=== PATIENT | male | born 1985 | race African-American/Black ===

== ENCOUNTER 2017-04-15 17:33 | Emergency (ER) | payer MEDICARE, OTHER ==
[~2017-04-15] VITALS: Ht 190.5 cm; Wt 115.0 kg
[2017-04-15 17:42] VITALS: TEMP 37.3; O2SAT 96; Ht 190.5 cm; Wt 115.0 kg
[2017-04-15] MEDS ORDERED: MoRPHine SULFATE 4 MG/ML 1 ML CARP\\VIAL IV STA (18:23)
[2017-04-15] MEDS ORDERED: ONDANSETRON INJ 2 MG/ML 2 ML VIAL IV STA (18:23)
[2017-04-15 18:29] LABS: BASO % 0.4 %; BASO ABS # 0.03 K/uL (0-0.2); COMPLETE YES; EOS % 1.7 %; HEMATOCRIT 39.5 % (42-52); IG% 0.1 %; LYMPH % 34.4 %; LYMPH ABS # 2.57 K/uL (1.2-3.4); MEAN CORPUSCULAR HGB CONC 34.4 g/dl (32-36); MEAN PLATELET VOLUME 9.3 fL (7.4-10.4); MONO % 9.9 %; NEUT % 53.5 %; PLATELET COUNT 258 K/uL (130-400); RED BLOOD COUNT 4.54 M/uL (4.7-6.1); WHITE BLOOD COUNT 7.48 K/uL (4.8-10.8)
[2017-04-15 18:44] LABS: BUN/CREATININE RATIO 9.5 (10-20); CALCIUM 9.1 mg/dl (8.5-10.1); CREATININE 1.5 mg/dl (0.60-1.40); MAGNESIUM 1.5 mg/dl (1.8-2.4); POTASSIUM 3.5 mmol/L (3.5-5.1)
[2017-04-15 18:58] LABS: ALB/GLOB RATIO 1.1 (0.9-2); CKMB/CK RATIO 0.1 (0-3.0); THYROID STIMULATING HORMONE 1.85 uIu/ml (0.300-4.500)
--- NOTE | 2017-04-15 19:10 | DIAGNOSTIC IMAGING REPORT ---
SINGLE VIEW CHEST CLINICAL HISTORY: Atypical chest pain. FINDINGS: An AP, portable, upright chest radiograph is obtained. No prior studies are available for comparison at the time of dictation. The examination is mildly degraded by portable technique and patient rotation. The cardiomediastinal silhouette is unremarkable. The lungs and pleural spaces are clear. No pneumothorax is seen. The bony thorax is grossly intact. IMPRESSION: No active disease in the chest. Electronically signed by: Ti Lopes M.D. 04/15/2017 7:09 PM Dictated Date/Time: 04/15/2017 7:09 PM
[2017-04-15] MEDS ORDERED: SODIUM CHLORIDE 0.9% 1000ML 1,000 ML IV STA (19:44)
--- NOTE | 2017-04-15 20:35 | EMERGENCY ROOM VISIT NOTE ---
History First contact with patient: 18:13 Chief Complaint: CHEST PAIN Stated Complaint: CHEST PAIN Nursing Triage Summary: Pt arrives by ALS from [place] for c/o chest pain. reports sudden onset of midsternal chest pain and SOB. Pt used inhaler, some improvement of SOB. Medicated with 324 ASA and 1 spray Nitro with little relief of CP. Unknown medical history, pt poor historian. History of Present Illness The patient is a 32 year old male who presents to the Emergency Room via ambulance with complaints of "chest pain". The patient states that around 5 PM this evening was playing basketball, and developed midsternal chest pain. Patient states he has had this before. He is accompanied by 2 [employer] employees. 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 The patient is a history of asthma. They state that he had similar episodes previously. The patient describes the pain as a heaviness in his chest. 325 mg of aspirin, and nitroglycerin in route. The patient denies any history of heart attack, history of blood clots, recent fractures. Review of Systems A complete 10-point Review of Systems was discussed with the patient, with pertinent positives and negatives listed in the History of Present Illness. All remaining Review of Systems questions can be considered negative unless otherwise specified. Past Medical/Surgical History Asthma Family History No pertinent family history identified. Social History Smoking Status: Never Smoker Social History: Patient participates in the [employer]. Current/Historical Medications No Active Prescriptions or Reported Meds Allergies Coded Allergies: No Known Allergies (Unverified , 04/15/17) Physical Exam Vital Signs Date Time Temp Pulse Resp B/P (MAP) Pulse Ox O2 Delivery O2 Flow Rate FiO2 04/15/17 20:49 71 16 121/73 99 04/15/17 19:25 80 16 123/71 98 Room Air 04/15/17 17:49 87 04/15/17 17:42 37.3 83 20 124/67 96 Room Air 04/15/17 17:42 96 Room Air 04/15/17 17:42 96 Room Air Physical Exam VITAL SIGNS - Vital signs and nursing notes were reviewed. Patient is afebrile , normotensive, non-tachycardic and is saturating well on room air 96%. GENERAL -32-year-old male appearing his stated age who is in no acute distress. Communicates well with provider and answers questions appropriately. SKIN - Without rashes. No petechial rashes. HEAD - NC/AT. EYES - Sclera anicteric. Palpebral conjunctiva pink and moist with no injection noted. NOSE - Midline and without cyanosis. No epistaxis or purulent drainage noted. MOUTH/OROPHARYNX - Without perioral cyanosis. Buccal mucosa pink and moist and without leukoplakia. Tongue midline with equal elevation of palate bilaterally. No tonsillar hypertrophy, erythema, or exudates noted. NECK - Neck with FROM. Supple to palpation. No lymphadenopathy noted. No nuchal rigidity. LUNGS - Chest wall symmetric without accessory muscle use, intercostals retractions, or central cyanosis. Normal vesicular breath sounds CTA B/L. No wheezes, rales, or rhonchi appreciated. CARDIAC - RRR with S1/S2. No murmur, rubs, or gallops appreciated. There is slight tenderness to palpation overlying the anterior chest. ABDOMEN - Abdominal contour without pulsations or visible masses. BS normoactive all four quadrants. No tenderness, palpable masses, hepatosplenomegaly, or ascites noted. Medical Decision & Procedures ER Provider Diagnostic Interpretation: SINGLE VIEW CHEST CLINICAL HISTORY: Atypical chest pain. FINDINGS: An AP, portable, upright chest radiograph is obtained. No prior studies are available for comparison at the time of dictation. The examination is mildly degraded by portable technique and patient rotation. The cardiomediastinal silhouette is unremarkable. The lungs and pleural spaces are clear. No pneumothorax is seen. The bony thorax is grossly intact. IMPRESSION: No active disease in the chest. Electronically signed by: Ti Lopes M.D. 04/15/2017 7:09 PM Dictated Date/Time: 04/15/2017 7:09 PM Laboratory Results 04/15/17 17:22 Red Blood Count 4.54, Mean Corpuscular Volume 87.0, Mean Corpuscular Hemoglobin 30.0, Mean Corpuscular Hemoglobin Concent 34.4, Mean Platelet Volume 9.3, Neutrophils (%) (Auto) 53.5, Lymphocytes (%) (Auto) 34.4, Monocytes (%) (Auto) 9.9, Eosinophils (%) (Auto) 1.7, Basophils (%) (Auto) 0.4, Neutrophils # (Auto) 4.00, Lymphocytes # (Auto) 2.57, Monocytes # (Auto) 0.74, Eosinophils # (Auto) 0.13, Basophils # (Auto) 0.03 04/15/17 17:22 Test 04/15/17 17:22 04/15/17 20:06 White Blood Count 7.48 K/uL (4.8-10.8) Red Blood Count 4.54 M/uL (4.7-6.1) Hemoglobin 13.6 g/dL (14.0-18.0) Hematocrit 39.5 % (42-52) Mean Corpuscular Volume 87.0 fL (80-100) Mean Corpuscular Hemoglobin 30.0 pg (25-34) Mean Corpuscular Hemoglobin Concent 34.4 g/dl (32-36) Platelet Count 258 K/uL (130-400) Mean Platelet Volume 9.3 fL (7.4-10.4) Neutrophils (%) (Auto) 53.5 % Lymphocytes (%) (Auto) 34.4 % Monocytes (%) (Auto) 9.9 % Eosinophils (%) (Auto) 1.7 % Basophils (%) (Auto) 0.4 % Neutrophils # (Auto) 4.00 K/uL (1.4-6.5) Lymphocytes # (Auto) 2.57 K/uL (1.2-3.4) Monocytes # (Auto) 0.74 K/uL (0.11-0.59) Eosinophils # (Auto) 0.13 K/uL (0-0.5) Basophils # (Auto) 0.03 K/uL (0-0.2) RDW Standard Deviation 40.0 fL (36.4-46.3) RDW Coefficient of Variation 12.5 % (11.5-14.5) Immature Granulocyte % (Auto) 0.1 % Immature Granulocyte # (Auto) 0.01 K/uL (0.00-0.02) Anion Gap 10.0 mmol/L (3-11) Est Creatinine Clear Calc Drug Dose 94.9 ml/min Estimated GFR () 69.4 Estimated GFR (Non- 59.9 BUN/Creatinine Ratio 9.5 (10-20) Calcium Level 9.1 mg/dl (8.5-10.1) Magnesium Level 1.5 mg/dl (1.8-2.4) Total Bilirubin 0.5 mg/dl (0.2-1) Aspartate Amino Transf (AST/SGOT) 33 U/L (15-37) Alanine Aminotransferase (ALT/SGPT) 36 U/L (12-78) Alkaline Phosphatase 53 U/L (45-117) Total Creatine Kinase 1548 U/L (39-308) Creatine Kinase MB 2.0 ng/ml (0.5-3.6) Creatine Kinase MB Ratio 0.1 (0-3.0) Total Protein 7.7 gm/dl (6.4-8.2) Albumin 4.1 gm/dl (3.4-5.0) Globulin 3.6 gm/dl (2.5-4.0) Albumin/Globulin Ratio 1.1 (0.9-2) Thyroid Stimulating Hormone (TSH) 1.850 uIu/ml (0.300-4.500) Bedside Troponin I 0.010 ng/ml (0-0.045) Medications Administered Medications (Trade) Dose Ordered Sig/Nupur Route Start Time Stop Time Status Last Admin Dose Admin Sodium Chloride 1,000 ml @ 999 mls/hr Q1H1M STAT IV 04/15/17 19:44 04/15/17 20:44 DC 04/15/17 19:44 999 MLS/HR Medical Decision Patient was seen and evaluated as above. After obtaining a thorough history and physical examination IV access was initiated, and the above workup was performed. [place] [employer] [place] he was playing [place] and subjectively developed chest pain. It was identified that the patient has been seen in other facilities for similar. Patient does have a history of asthma. The patient was initially ordered morphine for his pain, over concern for ACS subjectively, however was encouraged to call the mother of the patient who has power of privacy attorney. She states that he just had a workup 2 months ago with an echocardiogram for chest pain. All findings were negative. It was identified that the morphine will be held at this time. Patient rated his pain as a 10/10, however she informed me that he does not comprehend numeric value. CBC reveals no leukocytosis. Slight anemia noted with hemoglobin of 13.6. Chloride high at 110, creatinine elevated at 1.5. Random glucose of 119. Magnesium level I.5. Total creatinine elevated at 1548. Point care troponin negative 2. TSH unremarkable. Patient is likely experiencing a mild rhabdomyolysis, and was bolused with 1 L of normal saline. He tolerated this well. Case was discussed with my attending. I believe he can follow-up in the outpatient setting regarding these findings. I did call the mother back, and discussed today's findings. He is to follow-up with his family doctor back home on Tuesday. The patient this time appears stable for discharge. He was pain-free prior to departure. I don't suspect ACS, and suspect he likely experienced a mild asthma attack. This time there is no wheezing, and he is saturating well. He is stable for discharge. They were educated upon worrisome symptoms which to return, had questions prior to discharge, and was discharged home in good condition. In evaluation treatment this patient the following differential diagnoses were entertained: ACS, CT, PE, asthma attack, tension pneumothorax, pericarditis, pneumonia, among others. Impression Primary Impression: Chest wall pain Additional Impression: Increased CPK level Departure Information Dispostion Home / Self-Care Condition GOOD Prescriptions No Active Prescriptions or Reported Meds Referrals No Doctor, Assigned (PCP) Patient Instructions My [facility] Additional Instructions You were seen in the emergency department for your chest pain during activity. Your EKG reveals sinus rhythm with first-degree AV block. Please rest and drink plenty of fluids. LABS: You have a slight anemia. 13.6 is the hemoglobin Chloride is high at 110, creatinine is high at 1.5, magnesium 1.5, total creatinine kinase high at 1548. Please drink plenty fluids over the next few days, and have the total creatinine kinase and creatinine repeated with your family doctor. Please follow-up regarding today's visit. Your heart chemical troponin, was normal 2. Please return to the emergency department with any new/concerning symptoms. Problem Qualifiers
[2017-04-15 20:49] VITALS: BP 121/73; PULSE 71; O2SAT 99
== END 2017-04-15 20:50 | disposition home or self-care (01) ==
LOC: C.EDD 17:35
DX: R07.89 Other chest pain (principal); R74.8 Abnormal levels of other serum enzymes